=== PATIENT | male | born 1980 | race Hispanic/Latino ===

== ENCOUNTER 2023-08-06 10:05 | Emergency (ER) | payer OTHER, MEDICARE ==
[~2023-08-06] VITALS: Ht 170.2 cm; Wt 104.3 kg
[~2023-08-06 10:05] MED LIST: AMLO2.5T2 PO; BETH25 PO; CEFD300C3 PO; LACT10SO9 PO; OXCA600T18 PO; TAMS-1 PO; [UNRECOGNIZED DRUG - CODE] PO
[2023-08-06 10:30] LABS: BASOPHILS # (AUTO) 0.05 K/uL (0.00-0.20); BASOPHILS % (AUTO) 0.3 % (0.0-5.0); EOSINOPHILS # (AUTO) 0.01 K/uL (0.00-0.70); EOSINOPHILS % (AUTO) 0.1 % (0.0-8.0); HEMATOCRIT 42.8 % (42-54); IMMATURE GRANULOCYTE ABSOLUTE 0.12 K/uL (0-1); LYMPHOCYTES # (AUTO) 0.5 K/uL (1.0-4.8); LYMPHOCYTES % (AUTO) 2.9 % (21.0-51.0); MEAN CORPUSCULAR HEMOGLOBIN 29.7 pg (27.0-33.0); MEAN CORPUSCULAR HGB CONC 33.4 g/dL (32.0-36.0); MONOCYTES # (AUTO) 1.7 K/uL (0.1-1.0); NEUTROPHILS # (AUTO) 14.6 K/uL (1.8-7.7); PLATELET COUNT (AUTO) 187 K/uL (130-400); RED BLOOD CELL COUNT(AUTO) 4.81 MIL/uL (4.50-6.20); RED CELL DISTRIBUTION WIDTH 13.2 % (11.0-15.5)
[2023-08-06] MEDS: 0.9%NACL 1000ML 1,983 ML IV ONE (10:39)
[2023-08-06 10:45] LABS: SARS-CoV-2, RNA, NAAT NEGATIVE SARS CoV-2 (NEGATIVE)
[2023-08-06 10:53] LABS: CREATININE 0.9 mg/dL (0.5-1.3)
[2023-08-06 10:58] LABS: APPEARANCE,URINE CLOUDY (CLEAR); BILIRUBIN,TOTAL 0.4 mg/dL (0.2-1.0); BILIRUBIN,URINE NEGATIVE (NEGATIVE); COLOR,URINE LIGHT-ORANGE (YELLOW); GLUCOSE, URINE (UA) NEGATIVE (NEGATIVE); KETONES,URINE 10 mg/dL (NEGATIVE); LEUKOCYTE ESTERASE ,URINE 500 Leu/uL (NEGATIVE); NITRATE,URINE 1+ (NEGATIVE); OCCULT BLOOD,URINE LARGE (NEGATIVE); PH,URINE 7.5 (5.0-8.0); PROTEIN,URINE 300 mg/dL (NEGATIVE); TOTAL PROTEIN, SERUM 7.4 g/dL (6.0-8.3); UROBILINOGEN,URINE 0.2 mg/dL (0.2-1.0)
[2023-08-06 10:59] LABS: INFLUENZA TYPE A Negative For Type A (NEGATIVE)
[2023-08-06 11:00] LABS: ADD UA MICROSCOPIC YES; INFLUENZA TYPE B Positive For Type B (NEGATIVE)
[2023-08-06 11:05] LABS: BACTERIA,URINE FEW /HPF (None Seen); MUCUS,URINE RARE LPF (None Seen); RBC,URINE TNTC /HPF (0-1); SQUAMOUS EPITHELIAL CELL,UR RARE /HPF (0-2); WBC CLUMP MOD /HPF (0-1); WBC,URINE TNTC /HPF (0-1)
[2023-08-06] MEDS ORDERED: ONDANSETRON 4MG INJ IVP PRN (12:30)
[2023-08-06] MEDS ORDERED: PHARMACY COMMUNICATION MISC SCH (12:30)
[2023-08-06] MEDS ORDERED: 0.9%NACL 1000ML 1,000 ML IV SCH (12:30)
[2023-08-06] MEDS ORDERED: 0.9%NACL 50ML IV SCH (12:30)
[2023-08-06] MEDS: ZOSYN 3.375GM +NS 50ML IVPB SCH (12:55)
[2023-08-06] MEDS: THIAMINE HCL 100 MG/ML 2ML VIAL IVP SCH (12:55)
[2023-08-06] MEDS: OSELTAMIVIR PHOSPHATE 75 MG CAP PO SCH (12:55)
[2023-08-06] MEDS: LEVETIRACETAM 1,000 MG in 0.9%NACL 100ML 100 ML IV ONE (12:56)
[2023-08-06] MEDS: 0.9%NACL 1000ML 1,000 ML IV SCH (13:46)
[2023-08-06 14:12] LABS: HEMOGLOBIN A1C 5.1 % (4.0-6.0)
[2023-08-06 15:34] LABS: THYROID STIMULATING HORMONE 0.7 uIU/mL (0.36-3.74)
[2023-08-06] MEDS: ACETAMINOPHEN 500 MG TABLET PO PRN (16:29)
[2023-08-06] MEDS: ACETAMINOPHEN 500 MG TABLET PO ONE (17:48)
[2023-08-06] MEDS: KETOROLAC 15MG/ML VIAL (15MG/ML) IV ONE (17:53)
[2023-08-06 18:35] VITALS: TEMP 100
[2023-08-06 20:18] VITALS: BP 105/56; PULSE 89; RESP 20; O2SAT 96
== END 2023-08-06 20:24 | disposition short-term general hospital (02) ==
LOC: EDH 10:05
DX: G40.909 Epilepsy, unspecified, not intractable, without status epilepticus (principal); Z79.899 Other long term (current) drug therapy; Z98.890 Other specified postprocedural states
CPT/HCPCS: 99291; 70450; 96365; 96361; 96375; 71045; 87635; 96366; 83036; 84443; 82550; 80185; 84484; 80053; 85025; 87040 ×2; 87077; 87088; 87186; 87804 ×2; 83605 ×2; 86140; 81001; 36415; 74176; 96368; 82542; J1953; J3411; J2543; J1885